=== PATIENT | male | born 1965 | race Caucasian/White ===

== ENCOUNTER 2020-02-21 15:50 | Emergency (ER) | payer OTHER ==
[~2020-02-21] VITALS: Ht 188 cm; Wt 104.3 kg
[2020-02-21] MEDS ORDERED: BACTRIM DS TAB1 EACH PO (16:20)
[2020-02-21] MEDS ORDERED: HYDROCODON-ACE1 EAC7 PO (16:20)
[2020-02-21 17:02] VITALS: BP 128/98
== END 2020-02-21 17:03 | disposition home or self-care (01) ==
LOC: M.ERS 15:50
DX: S70.11XA Contusion of right thigh, initial encounter (principal); L02.415 Cutaneous abscess of right lower limb; X58.XXXA Exposure to other specified factors, initial encounter; Y93.89 Activity, other specified; Y92.89 Other specified places as the place of occurrence of the external cause; Y99.8 Other external cause status